=== PATIENT | female | born 1990 | race African-American/Black ===

== ENCOUNTER 2019-04-15 09:41 | Emergency (ER) | payer OTHER ==
[~2019-04-15] VITALS: Ht 167.6 cm; Wt 80.0 kg
[2019-04-15 10:37] LABS: BASOPHILS % 0.9 % (0.0-2.0); EOSINOPHILS % 0.5 % (0.0-5.0); HEMATOCRIT. 37.4 % (36.0-48.0); HEMOGLOBIN. 12.2 g/dL (12.0-16.0); LYMPHOCYTES % 26.3 % (20.0-50.0); MEAN CORPUSCULAR VOLUME 85.8 fL (81.0-99.0); MEAN PLATELET VOLUME 7.2 fl (7.4-10.4); MONOCYTES % 6.9 % (2.0-8.0); NEUTROPHILS % 65.4 % (40.0-76.0); PLATELET 278 x1000/uL (130-400); RED BLOOD CELL COUNT 4.36 mill/uL (4.2-5.4); RED CELL DISTRIBUTION WIDTH 13.9 % (11.6-14.6)
[2019-04-15 10:44] LABS: CHLORIDE 107 mEq/L (98-107)
[2019-04-15 14:52] VITALS: BP 120/76
== END 2019-04-15 14:52 | disposition home or self-care (01) ==
LOC: ER 09:41
DX: R25.2 Cramp and spasm (principal); Z63.79 Other stressful life events affecting family and household
CPT/HCPCS: 36415; 93005; 99284